=== PATIENT | female | born 1990 | race Caucasian/White ===

== ENCOUNTER 2018-05-25 00:06 | Emergency (ER) | payer BC ==
[2018-05-25 00:40] LABS: Pregnancy Test - Urine (BHCG) Negative (Negative); Pregu Control Background? CLEAR/WHITE (CLR/WHITE); Pregu Control Bar Appear? YES (CONTROL BAR); Specific Gravity 1.021 (1.002-1.036)
[2018-05-25 00:43] LABS: Bilirubin Negative (Negative); Blood, Urine Negative (Negative); Clarity Hazy (Clear); Glucose, Urine (Dipstick) Negative (Negative); Leukocyte Negative (Negative); Nitrite Negative (Negative); Protein, Urine (Dipstick) Negative (Neg-Trace); Urobilinogen 0.2 mg/dL (0.2-1.0)
[2018-05-25] MEDS ORDERED: metroNIDAZOLE 250 MG TAB ONE (00:58)
[2018-05-25] MEDS ORDERED: Azithromycin 250 MG TAB ONE (00:58)
[2018-05-25] MEDS ORDERED: cefTRIAXone\\ROCEPHIN 500 MG VIAL ONE (00:58)
[2018-05-26 21:45] LABS: Chlamydia by PCR Not Detected (NotDetected); GC by PCR Not Detected (NotDetected)
== END 2018-05-25 01:36 | disposition home or self-care (01) ==
LOC: BURERS 00:06
DX: R33.9 Retention of urine, unspecified (principal); F17.290 Nicotine dependence, other tobacco product, uncomplicated
CPT/HCPCS: 51702; 81003; 81025; 87086; 87480; 87491; 87510; 87591; 87660; 96372; J0696

== ENCOUNTER 2018-07-21 01:13 | Emergency (ER) | payer BC ==
[2018-07-21 01:37] LABS: Pregnancy Test - Urine (BHCG) POSITIVE (Negative); Pregu Control Background? CLEAR/WHITE (CLR/WHITE); Pregu Control Bar Appear? YES (CONTROL BAR); Specific Gravity 1.017 (1.002-1.036)
[2018-07-21 01:38] LABS: Bilirubin Negative (Negative); Blood, Urine Negative (Negative); Clarity Hazy (Clear); Glucose, Urine (Dipstick) Negative (Negative); Leukocyte Trace (Negative); Nitrite Negative (Negative); Protein, Urine (Dipstick) Negative (Neg-Trace); Urobilinogen 0.2 mg/dL (0.2-1.0)
[2018-07-21 01:46] LABS: Bacteria/HPF 1+ HPF (None Seen); Crystals/HPF 1+ AMORPH PHOS HPF (Negative); Other Microscopic Description FEW CLUE CELLS; RBC/HPF 0-3 HPF (0-3); Squamous Epithelial 0-3 HPF (0-3); WBC/HPF 0-3 HPF (0-3)
== END 2018-07-21 02:00 | disposition home or self-care (01) ==
LOC: BURERS 01:13
DX: O99.89 Other specified diseases and conditions complicating pregnancy, childbirth and the puerperium (principal); R10.33 Periumbilical pain; O99.331 Smoking (tobacco) complicating pregnancy, first trimester; F17.210 Nicotine dependence, cigarettes, uncomplicated; Z3A.10 10 weeks gestation of pregnancy
CPT/HCPCS: 81003; 81015; 81025; 99284

== ENCOUNTER 2020-08-07 02:05 | Emergency (ER) | payer BC ==
[2020-08-07] MEDS ORDERED: Fentanyl 100 MCG/2 ML VIAL ONE ×3 (02:39→03:32)
[2020-08-07] MEDS ORDERED: Ondansetron PF 4 MG/2 ML Vial ONE ×2 (02:40→03:32)
[2020-08-07 02:44] LABS: Bilirubin Negative (Negative); Blood, Urine Negative (Negative); Clarity Clear (Clear); Glucose, Urine (Dipstick) Negative (Negative); Ketone, Urine Negative (Negative); Leukocyte Negative (Negative); Nitrite Negative (Negative); Protein, Urine (Dipstick) 100 mg/dL (Neg-Trace); Urobilinogen 0.2 mg/dL (Less than 2); pH, Urine 5.5 (5.0-9.0)
[2020-08-07 02:48] LABS: Pregnancy Test - Urine (BHCG) Negative (Negative); Pregu Control Background? CLEAR/WHITE (CLR/WHITE); Pregu Control Bar Appear? YES (CONTROL BAR); Specific Gravity 1.026 (1.002-1.036); Specific Gravity, Urine 1.026 (1.002-1.036)
[2020-08-07 02:53] LABS: Bacteria/HPF 1+ HPF (None Seen); RBC/HPF 0-3 HPF (0-3); Squamous Epithelial 0-3 HPF (0-3); WBC/HPF 0-3 HPF (0-3)
[2020-08-07 03:01] LABS: ALT (SGPT) 25 U/L (8-55); AST (SGOT) 17 U/L (5-34); Albumin 3.9 g/dL (3.5-5.0); Alkaline Phosphatase 100 U/L (40-110); Anion Gap 16 mmol/L (10-20); BUN (Urea Nitrogen) 13 mg/dL (7.0-18.7); Bilirubin, Total 0.2 mg/dL (0.2-1.2); Calc. Creatinine Clearance 0 mL/min (70-130); Calcium 8.8 mg/dL (7.8-10.44); Carbon Dioxide 19 mmol/L (22-29); Chloride 104 mmol/L (98-107); Globulin 3.8 g/dL (2.4-3.5); Glucose 139 mg/dL (70-105); Lipase 21 U/L (8-78); Potassium 4.3 mmol/L (3.5-5.1); Protein, Total 7.7 g/dL (6.0-8.3); Sodium 135 mmol/L (136-145)
[2020-08-07 03:09] LABS: Band 1 % (5-11); Eosinophils 1 % (0-10); Lymphocytes 19 % (21-51); MDiff Complete? YES; Mean Corpuscular Hemoglobin 27.2 pg (27.0-31.0); Mean Corpuscular Volume 84.9 fL (78.0-98.0); Monocytes 6 % (0-10); Neutrophil 72 % (42-75); Platelet Count 497 thou/uL (130-400); Platelet Morphology Comment Appears Increased; RBC Distribution Width 13.7 % (11.5-14.5); RBC Morphology Normal; Red Blood Cell (RBC) Count 5.87 mill/uL (4.20-5.40); White Blood Cell (WBC) Count 19.6 thou/uL (4.8-10.8)
[2020-08-07] MEDS ORDERED: Piperacillin/Tazobactam 4.5 GM VIAL ONE (03:43)
[2020-08-07] MEDS ORDERED: Sodium Chloride 0.9% 100 ML ONE (03:44)
[2020-08-07] MEDS ORDERED: Morphine 2 MG/ML VIAL ONE (03:51)
--- NOTE | 2020-08-07 07:56 | CT ---
PRELIMINARY REPORT/[facility]/EMERGENCY AFTER HOURS PROCEDURE: EXAM: CT Abdomen and Pelvis with Intravenous Contrast CLINICAL HISTORY: ABD PAIN, R/O INCARCERATED UMBILIACAL HERNIA TECHNIQUE: Axial computed tomography images of the abdomen and pelvis with intravenous contrast. CONTRAST: With; 100ML ISO 370 COMPARISON: None provided. FINDINGS: LUNG BASES: No basilar airspace consolidation or pleural effusion. LIVER: Unremarkable. GALLBLADDER AND BILE DUCTS: Unremarkable. No calcified stone. No ductal dilation. PANCREAS: Unremarkable. SPLEEN: Unremarkable. ADRENAL GLANDS: Unremarkable. KIDNEYS, URETERS, AND BLADDER: Unremarkable. No hydronephrosis or nephrolithiasis. No ureteral or jose e dder calculi. STOMACH AND BOWEL: No obstruction. No wall thickening. No CT evidence of colitis or acute diverticuli tis. APPENDIX: No CT evidence for appendicitis. PERITONEUM: No free fluid. No free air. LYMPH NODES: No lymphadenopathy. REPRODUCTIVE: Unremarkable as visualized. VASCULATURE: No aortic aneurysm. BONES: No fracture or suspicious osseous abnormality. ABDOMINAL WALL AND SOFT TISSUES: There is a large fat-containing umbilical hernia cavity.. IMPRESSION: No acute intra-abdominal or pelvic abnormality. There is a large fat-containing umbilica l hernia cavity. ELECTRONICALLY SIGNED BY: Becky Metcalf DO Aug 07, 2020 3:33:16 AM CUSTOMER ENGINEER FINAL REPORT EMERGENCY AFTER HOURS CT ABDOMEN AND PELVIS WITH IV CONTRAST: HISTORY: Abdominal pain. Rule out incarcerated umbilical hernia. COMPARISON: None. IMPRESSION: 1. Large fat-containing umbilical hernia with defect measuring approximately 2.7 cm. No bowel loops a re seen within the hernia, but there is a large amount of mesenteric fat present. 2. No acute findings in the abdomen or pelvis. 3. Findings are in agreement with the preliminary report by [facility]. Transcribed Date/Time: 08/07/2020 8:08 AM
== END 2020-08-07 04:20 | disposition short-term general hospital (02) ==
LOC: BURERS 02:05
DX: K42.0 Umbilical hernia with obstruction, without gangrene (principal); Z79.899 Other long term (current) drug therapy; F17.210 Nicotine dependence, cigarettes, uncomplicated; F17.290 Nicotine dependence, other tobacco product, uncomplicated
CPT/HCPCS: 74177; 80053; 81003; 81015; 81025; 83690; 85025; 94760; 96361; 96365; 96375; 96376; J2270; J2405; J2543; J3010; J3490